=== PATIENT | male | born 1980 ===

== ENCOUNTER 2017-12-08 10:57 | Emergency (ER) | payer BC | END 2017-12-08 11:43 | disposition left against medical advice (07) | LOC: UCCORT 10:57 | DX: T14.8XXA Other injury of unspecified body region, initial encounter (principal); W57.XXXA Bitten or stung by nonvenomous insect and other nonvenomous arthropods, initial encounter ==

== ENCOUNTER 2018-06-15 16:40 | Emergency (ER) | payer BC ==
[2018-06-15 16:52] VITALS: BP 144/88
[2018-06-15] MEDS ORDERED: Tetan/Diph/Pertus SYR(Tdap)* 0.5 ML SYR(BOOSTRIX) use SYR IM ONE (16:59)
[2018-06-15] MEDS ORDERED: Gelfoam 12-7 ADSORBABL SPONGE* 1 EA SPONGE TOPICAL ONE (17:10)
--- NOTE | 2018-06-15 17:31 | UC ---
Laceration HPI - HPI Summary HPI Summary: Just prior to arrival patient was installing a [employer] counter top when it slipped. Patient sustained a skin avulsion to his left index finger volar surface. Unknown date of last tetanus. - History Of Current Complaint Chief Complaint: UCLaceration Stated Complaint: LEFT HAND POINTER FINGER LAC Time Seen by Provider: 06/15/18 16:50 Hx Obtained From: Patient Laceration Location: Finger - left index Mechanism Of Injury: Blunt Trauma Onset/Duration: Sudden Onset, Lasting Hours, Still Present Severity: Moderate Pain Intensity: 6 Pain Scale Used: 0-10 Numeric Related History: Dominant Hand Right - Allergies/Home Medications Allergies/Adverse Reactions: Allergies Allergy/AdvReac Type Severity Reaction Status Date / Time No Known Allergies Allergy Verified 06/15/18 16:52 Home Medications: Home Medications NK [No Home Medications Reported] 06/15/18 [History Confirmed 06/15/18] PMH/Surg Hx/FS Hx/Imm Hx Previously Healthy: Yes - Surgical History Surgical History: Yes Surgery Procedure, Year, and Place: varicose vein LLE - Family History Family History: non contributory - Social History Alcohol Use: Daily Substance Use Type: None Smoking Status (MU): Never Smoked Tobacco Review of Systems Constitutional: Negative Skin: Other - skin avulsion left index finger Respiratory: Negative Cardiovascular: Negative Gastrointestinal: Negative Musculoskeletal: Negative All Other Systems Reviewed And Are Negative: Yes Physical Exam Triage Information Reviewed: Yes Appearance: Well-Appearing, No Pain Distress, Well-Nourished Vital Signs: Initial Vital Signs Temp 98.5 F 06/15/18 16:48 Pulse 75 06/15/18 16:48 Resp 15 06/15/18 16:48 BP 144/88 06/15/18 16:48 Pulse Ox 99 06/15/18 16:48 Vital Signs Reviewed: Yes Eyes: Positive: Conjunctiva Clear ENT: Positive: Hearing grossly normal Neck: Positive: Supple Respiratory: Positive: No respiratory distress, No accessory muscle use Cardiovascular: Positive: Pulses Normal Abdomen Description: Positive: Soft Musculoskeletal: Positive: ROM Intact, No Edema Neurological: Positive: Alert Psychological: Positive: Normal Response To Family Skin: Positive: Other - 1.5CM X 0.5CM SKIN AVULSION LEFT INDEX FINGER VOLAR SURFACE OVERLYING DIP JOINT Laceration Course/Dx - Course/Dx Course Of Treatment: GELFOAM AND TUBE GAUZE APPLIED. TDAP BOOSTED. - Differential Dx - Laceration/Wound Provider Diagnoses: 1. SKIN AVULSION LEFT INDEX FINGER. 2. TDAP BOOSTER Discharge - Sign-Out/Discharge Documenting (check all that apply): Patient Departure All imaging exams completed and their final reports reviewed: No Studies - Discharge Plan Condition: Stable Disposition: HOME Patient Education Materials: Skin Avulsion (ED) Referrals: Zhen Shabazz MD [Primary Care Provider] - If Needed Additional Instructions: KEEP DRESSINGS IN PLACE AND DRY FOR THE FIRST 24 HRS. THEN OKAY TO CHANGE THE EXTERNAL BANDAGE BUT STILL KEEP DRY AND LEAVE THE GELFOAM IN PLACE FOR ABOUT 3 DAYS. THEN GELFOAM MAY START TO FLAKE OFF. KEEP WOUND COVERED AND DRESSED. IT WILL NEED TO HEAL FROM THE INSIDE OUT. THIS WILL TAKE A LONG TIME. SEEK FOLLOW-UP IF YOU DEVELOP SPREADING REDNESS OF THE SKIN, PURULENT DRAINAGE, FEVER, INCREASED PAIN OR ANY OTHER CONCERNING SYMPTOMS. TETANUS IMMUNIZATION GIVEN (TDAP): You have been given an immunization against tetanus. Please record this in your records. In general, a booster is needed only once every 10 years. The tetanus shot protects against tetanus or "lockjaw," which is a complication of certain wound infections (the tetanus shot cannot protect against the actual infection). The immunization site may become warm and red due to local reaction. If this occurs, apply warm compresses and take aspirin or ibuprofen to reduce inflammation and discomfort. Return for evaluation if the reaction becomes severe. - Billing Disposition and Condition Condition: STABLE Disposition: Home
== END 2018-06-15 17:28 | disposition home or self-care (01) ==
LOC: UCCORT 16:40
DX: S61.211A Laceration without foreign body of left index finger without damage to nail, initial encounter (principal); W22.8XXA Striking against or struck by other objects, initial encounter; Y93.89 Activity, other specified; Y92.9 Unspecified place or not applicable
CPT/HCPCS: 90715; 99212; A9270-GY; G0463